=== PATIENT | male | born 1935 | race Caucasian/White ===

== ENCOUNTER 2016-10-31 14:09 | Inpatient (IN) | payer MEDICARE, BC, MEDICAID ==
--- NOTE | 2016-10-31 14:41 | EDM.PDOC ---
[id number] by Provider: 10/31/16 14:30 Source of Information: Reports: Patient, Family History Limitations: Reports: No limitations - History of Present Illness INITIAL COMMENTS - FREE TEXT/NARRATIVE: 80-year-old male with pulmonary fibrosis who was recently hospitalized for pneumonia and pleurisy has developed increased cough, shortness of breath and generalized malaise and weakness over the past several days. He's having difficulty talking in full sentences because of the dyspnea. He does not have a significantly increased respiratory rate nor does he have pain. He just feels awful. Onset: unknown/unsure (Several days) Location: Reports: abdomen Severity: moderate Associated Symptoms: Reports: nausea/vomiting, weakness. Denies: fever/chills, shortness of breath - Related Data Allergies Allergy/AdvReac Type Severity Reaction Status Date / Time morphine AdvReac Hallucinati Verified 08/15/16 09:41 ons Home Meds: Home Meds Aspirin [Adult Low Dose Aspirin EC] 1 tab PO DAILY 04/13/13 [History] Carvedilol [Coreg] 6.25 mg PO DAILY 04/13/13 [History] Losartan [Cozaar] 25 mg PO DAILY 04/13/13 [History] Multivit-Min/FA/Lycopene/Lut [Centrum Silver] 1 each PO DAILY 04/13/13 [History] Simvastatin [Zocor] 40 mg PO BEDTIME 04/13/13 [History] Pirfenidone [Esbriet] 2 tab PO TID 08/11/16 [History] Albuterol/Ipratropium [DuoNeb 3.0-0.5 MG/3 ML] 3 ml INH QID 09/08/16 [History] Carvedilol 12.5 mg PO BEDTIME 09/08/16 [History] Omeprazole Magnesium [Prilosec Otc] 1 tab PO DAILY 10/31/16 [History] Past Medical History HEENT History: Reports: Hard of hearing, Impaired vision Cardiovascular History: Reports: CAD, Heart Failure, High cholesterol, Hypertension, Pacemaker, SOB on exertion Respiratory History: Reports: COPD Other Respiratory History: influenza A Gastrointestinal History: Reports: GERD, GI bleed, Other (see below) Other Gastrointestinal History: diverticulitis, 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 Musculoskeletal History: Reports: Back pain, chronic, Osteoarthritis Hematologic History: Reports: Blood transfusion(s) Other Oncologic History: 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 - Infectious Disease History Infectious Disease History: Reports: Chicken pox, Influenza - Past Surgical History HEENT Surgical History: Reports: Adenoidectomy, Tonsillectomy Cardiovascular Surgical History: Reports: AICD, Coronary artery bypass, Pacer, Percutaneous transluminal angioplasty GI Surgical History: Reports: Appendectomy, Colon, Colonoscopy, EGD, Hernia repair/other Social & Family History - Family History Family Medical History: Noncontributory - Tobacco Use Smoking Status *Q: Never Smoker Years of Tobacco use: 30 Packs/Tins Daily: 1 Used Tobacco, but Quit: Yes Month Tobacco Last Used: 08/2010 Second Hand Smoke Exposure: No - Caffeine Use Caffeine Use: Reports: Coffee, Tea Other Caffeine Use: 1 cup a day - Alcohol Use Days Per Week of Alcohol Use: 1 Number of Drinks Per Day: 1 Total Drinks Per Week: 1 - Recreational Drug Use Recreational Drug Use: No - Living Situation & Occupation Living situation: Reports: Occupation: retired (Lives with , Sis in [place], [place]. has children and family in [place], his is a retired Charge Nurse at [employer], [place]) ED ROS GENERAL - Review of Systems Review Of Systems: See Below Constitutional: Reports: malaise, weakness. Denies: fever, chills HEENT: Reports: No symptoms Respiratory: Reports: Shortness of Breath, Cough Cardiovascular: Reports: Palpitations (According to his home health nurse his pulse was "irregular"). Denies: Chest pain GI/Abdominal: Denies: Abdominal pain, Constipation, Nausea, Vomiting : Reports: other Skin: Reports: pallor Neurological: Reports: Dizziness. Denies: Headache Psychiatric: Reports: No symptoms ED EXAM, GENERAL - Physical Exam Exam: See Below Exam Limited By: No limitations General Appearance: alert, no apparent distress (Patient looks uncomfortable with persistent nausea) Respiratory/Chest: no respiratory distress, rales, rhonchi (Diffuse rales and rhonchi heard bilaterally) Cardiovascular: regular rate, rhythm, extra beats GI/Abdominal: normal bowel sounds, soft, tender (Moderately tender to palpation across the upper abdomen) Extremities: No: pedal edema Neurological: alert, oriented Psychiatric: normal affect, normal mood Skin Exam: Warm, Dry Course - Vital Signs Last Recorded V/S: Last Vital Signs Temp 97.2 F 11/01/16 03:00 Pulse 89 11/01/16 03:00 Resp 17 11/01/16 03:00 BP 118/82 11/01/16 03:00 Pulse Ox 95 11/01/16 03:00 - Orders/Labs/Meds Orders: Active Orders 24 hr Category Date Time Status Chest 1V Frontal [CR] Stat Exams 10/31/16 14:52 Taken Medication Orders Acetaminophen (Tylenol) 650 mg PO Q4H PRN PRN Reason: Pain (Mild 1-3)/fever Albuterol/Ipratropium (Duoneb 3.0-0.5 Mg/3 Ml) 3 ml INH QIDRT [facility] Last Admin: 11/01/16 07:17 Dose: 3 ml Admin: 10/31/16 20:29 Dose: 3 ml Aspirin (Halfprin) 81 mg PO DAILY [facility] Carvedilol (Coreg) 12.5 mg PO BEDTIME [facility] Last Admin: 10/31/16 20:28 Dose: 12.5 mg Carvedilol (Coreg) 6.25 mg PO DAILY [facility] Docusate Sodium (Colace) 100 mg PO BID PRN PRN Reason: Constipation Enoxaparin Sodium (Lovenox) 40 mg SUBCUT DAILY [facility] Last Admin: 10/31/16 18:25 Dose: 40 mg Lactated Ringer's (Ringers, Lactated) 1,000 mls @ 125 mls/hr IV ASDIRECTED [facility] Last Admin: 11/01/16 03:09 Dose: 125 mls/hr Levofloxacin/Dextrose 250 mg/ (Premix) 50 mls @ 50 mls/hr IV Q24H [facility] Losartan Potassium (Cozaar) 25 mg PO DAILY [facility] Magnesium Hydroxide (Milk Of Magnesia) 30 ml PO Q12H PRN PRN Reason: Constipation Methylprednisolone Sodium Succinate (Solu-Medrol) 40 mg IVPUSH Q6H [facility] Last Admin: 11/01/16 05:23 Dose: 40 mg Admin: 11/01/16 00:27 Dose: 40 mg Admin: 10/31/16 18:25 Dose: 40 mg Non-Formulary Medication (Pirfenidone [Esbriet]) 2 tab PO TID [facility] Omeprazole (Omeprazole) 20 mg PO ACBREAKFAST [facility] Ondansetron HCl (Zofran) 4 mg IV Q4H PRN PRN Reason: Nausea/Vomiting Oxycodone HCl (Oxycodone) 5 mg PO Q4H PRN PRN Reason: Pain (moderate 4-6) Polyethylene Glycol (Miralax) 17 gm PO DAILY PRN PRN Reason: Constipation Simvastatin (Zocor) 40 mg PO BEDTIME [facility] Last Admin: 10/31/16 20:28 Dose: 40 mg Sodium Chloride (Saline Flush) 10 ml FLUSH ASDIRECTED PRN PRN Reason: Keep Vein Open Labs: Laboratory Tests 10/31/16 10/31/16 10/31/16 Range/Units 14:53 14:53 15:18 WBC 19.3 H (4.5-11.0) K/uL RBC 4.05 L (4.30-5.90) M/uL Hgb 12.0 (12.0-15.0) g/dL Hct 38.6 L (40.0-54.0) % MCV 95 (80-98) fL MCH 30 (27-31) pg MCHC 31 L (32-36) % Plt Count 434 H (150-400) K/uL Neut % (Auto) 83 H (36-66) % Lymph % (Auto) 10 L (24-44) % Grant % (Auto) 6 (2-6) % Eos % (Auto) 1 L (2-4) % Baso % (Auto) 0 (0-1) % Sodium 142 (140-148) mmol/L Potassium 3.9 (3.6-5.2) mmol/L Chloride 103 (100-108) mmol/L Carbon Dioxide 32 (21-32) mmol/L Anion Gap 7.5 (5.0-14.0) mmol/L BUN 17 (7-18) mg/dL Creatinine 1.1 (0.8-1.3) mg/dL Est Cr Clr Drug Dosing 45.59 mL/min Estimated GFR (MDRD) > 60 (>60) Glucose 164 H (74-106) mg/dL Calcium 9.1 (8.5-10.1) mg/dL Magnesium 1.8 (1.8-2.4) mg/dL Total Bilirubin 0.3 (0.2-1.0) mg/dL AST 18 (15-37) U/L ALT 18 (12-78) U/L Alkaline Phosphatase 113 (46-116) U/L Total Protein 8.5 H (6.4-8.2) g/dL Albumin 2.6 L (3.4-5.0) g/dL Globulin 5.9 H (2.3-3.5) g/dL Albumin/Globulin Ratio 0.4 L (1.2-2.2) Meds: Medications Generic Name Dose Route Start Last Admin Trade Name Freq PRN Reason Stop Dose Admin Acetaminophen 650 mg 10/31/16 17:53 Tylenol PO Q4H PRN Pain (Mild 1-3)/fever Albuterol/Ipratropium 3 ml 10/31/16 21:00 11/01/16 07:17 Duoneb 3.0-0.5 Mg/3 Ml INH 3 ml QIDRT [facility] Administration Aspirin 81 mg 11/01/16 09:00 Halfprin PO DAILY [facility] Carvedilol 12.5 mg 10/31/16 21:00 10/31/16 20:28 Coreg PO 12.5 mg BEDTIME [facility] Administration Carvedilol 6.25 mg 11/01/16 09:00 Coreg PO DAILY [facility] Docusate Sodium 100 mg 10/31/16 17:53 Colace PO BID PRN Constipation Enoxaparin Sodium 40 mg 10/31/16 17:53 10/31/16 18:25 Lovenox SUBCUT 40 mg DAILY [facility] Administration Lactated Ringer's 1,000 mls @ 125 mls/hr 10/31/16 17:53 11/01/16 03:09 Ringers, Lactated IV 125 mls/hr ASDIRECTED [facility] Administration Levofloxacin/Dextrose 250 mg/ 50 mls @ 50 mls/hr 11/01/16 18:00 Premix IV Q24H [facility] Losartan Potassium 25 mg 11/01/16 09:00 Cozaar PO DAILY [facility] Magnesium Hydroxide 30 ml 10/31/16 17:53 Milk Of Magnesia PO Q12H PRN Constipation Methylprednisolone Sodium Succinate 40 mg 10/31/16 18:00 11/01/16 05:23 Solu-Medrol IVPUSH 40 mg Q6H [facility] Administration Non-Formulary Medication 2 tab 10/31/16 21:00 Pirfenidone [Esbriet] PO TID [facility] Omeprazole 20 mg 11/01/16 07:30 Omeprazole PO ACBREAKFAST [facility] Ondansetron HCl 4 mg 10/31/16 17:53 Zofran IV Q4H PRN Nausea/Vomiting Oxycodone HCl 5 mg 10/31/16 17:53 Oxycodone PO Q4H PRN Pain (moderate 4-6) Polyethylene Glycol 17 gm 10/31/16 17:53 Miralax PO DAILY PRN Constipation Simvastatin 40 mg 10/31/16 21:00 10/31/16 20:28 Zocor PO 40 mg BEDTIME [facility] Administration Sodium Chloride 10 ml 10/31/16 17:53 Saline Flush FLUSH ASDIRECTED PRN Keep Vein Open Discontinued Medications Generic Name Dose Route Start Last Admin Trade Name Freq PRN Reason Stop Dose Admin Levofloxacin/Dextrose 500 mg/ 100 mls @ 100 mls/hr 10/31/16 18:00 10/31/16 18 :25 Premix IV 10/31/16 18:59 100 mls/hr ONETIME ONE Administration - Re-Assessments/Exams Free Text/Narrative Re-Assessment/Exam: 10/31/16 14:41 A 1 view chest x-ray was obtained that showed diffuse infiltrates. This however looks consistent with past x-rays. CBC CMP and magnesium were obtained. Also, was 19.3. Extended chemistry panel was relatively normal including magnesium, his glucose was mildly elevated. Dr. Vines of the hospitalist service will assess the patient to discuss possible admission and further treatment. Departure - Departure Time of Disposition: 17:30 Disposition: Admitted As Inpatient 65 Condition: fair Clinical Impression: Hypoxia, SOB (shortness of breath), Idiopathic pulmonary fibrosis - My Orders Last 24 Hours: My Active Orders 10/31/16 14:52 Chest 1V Frontal [CR] Stat - Assessment/Plan Last 24 Hours: My Active Orders 10/31/16 14:52 Chest 1V Frontal [CR] Stat
--- NOTE | 2016-10-31 17:46 | PCM.HP ---
H&P History of Present Illness - General Date of Service: 10/31/16 Admit Problem/Dx: Admission Diagnosis/Problem Admission Diagnosis/Problem Hypoxia Source of Information: Patient, Family, Old records, Provider, RN notes reviewed History Limitations: Reports: No limitations - History of Present Illness Initial Comments - Free Text/Narative: This patient is an 80-year-old gentleman with known severe pulmonary fibrosis and ongoing hypoxia requiring supplemental oxygen. He was hospitalized at this facility twice in August because of hypoxia and exacerbation of pulmonary fibrosis. Since his last discharge he's done well until the past 3-4 days when he's redeveloped cough and progressive increasing shortness of breath. Associated with this has been progressive weakness and decrease in appetite. He denies recent fevers chills or sweats and thus far cough has been productive only of white colored sputum. On evaluation in the emergency department today was noted to be hypoxic despite supplemental oxygen. Chest x-ray shows evidence of pulmonary fibrosis but no obvious new pulmonary infiltrates. White blood cell count is elevated, he is been afebrile while in the emergency department. - Related Data Allergies/Adverse Reactions: Allergies Allergy/AdvReac Type Severity Reaction Status Date / Time morphine AdvReac Hallucinati Verified 08/15/16 09:41 ons Home Medications: Home Meds Aspirin [Adult Low Dose Aspirin EC] 1 tab PO DAILY 04/13/13 [History] Carvedilol [Coreg] 6.25 mg PO DAILY 04/13/13 [History] Losartan [Cozaar] 25 mg PO DAILY 04/13/13 [History] Multivit-Min/FA/Lycopene/Lut [Centrum Silver] 1 each PO DAILY 04/13/13 [History] Simvastatin [Zocor] 40 mg PO BEDTIME 04/13/13 [History] Pirfenidone [Esbriet] 2 tab PO TID 08/11/16 [History] Albuterol/Ipratropium [DuoNeb 3.0-0.5 MG/3 ML] 3 ml INH QID 09/08/16 [History] Carvedilol 12.5 mg PO BEDTIME 09/08/16 [History] Omeprazole Magnesium [Prilosec Otc] 1 tab PO DAILY 10/31/16 [History] Past Medical History HEENT History: Reports: Hard of hearing, Impaired vision Cardiovascular History: Reports: CAD, Heart Failure, High cholesterol, Hypertension, Pacemaker, SOB on exertion Respiratory History: Reports: COPD Other Respiratory History: influenza A Gastrointestinal History: Reports: GERD, GI bleed, Other (see below) Other Gastrointestinal History: diverticulitis, 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 Musculoskeletal History: Reports: Back pain, chronic, Osteoarthritis Hematologic History: Reports: Blood transfusion(s) Other Oncologic History: 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 - Infectious Disease History Infectious Disease History: Reports: Chicken pox, Influenza - Past Surgical History HEENT Surgical History: Reports: Adenoidectomy, Tonsillectomy Cardiovascular Surgical History: Reports: AICD, Coronary artery bypass, Pacer, Percutaneous transluminal angioplasty GI Surgical History: Reports: Appendectomy, Colon, Colonoscopy, EGD, Hernia repair/other Social & Family History - Family History Family Medical History: Noncontributory - Tobacco Use Smoking Status *Q: Never Smoker Years of Tobacco use: 30 Packs/Tins Daily: 1 Used Tobacco, but Quit: Yes Month Tobacco Last Used: 08/2010 Second Hand Smoke Exposure: No - Caffeine Use Caffeine Use: Reports: Coffee, Tea Other Caffeine Use: 1 cup a day - Alcohol Use Days Per Week of Alcohol Use: 1 Number of Drinks Per Day: 1 Total Drinks Per Week: 1 - Recreational Drug Use Recreational Drug Use: No - Living Situation & Occupation Living situation: Reports: Occupation: retired (Lives with , Sis in [place], [place]. has children and family in [place], his is a retired Charge Nurse at [employer]) H&P Review of Systems - Review of Systems: Review Of Systems: See Below General: Reports: weakness, decreased appetite. Denies: fever, chills, diaphoresis HEENT: Reports: no symptoms Pulmonary: Reports: Shortness of Breath, Cough, Sputum. Denies: Wheezing, Pleuritic Chest Pain, Hemoptysis Cardiovascular: Reports: dyspnea on exertion. Denies: chest pain, palpitations , orthopnea, PND, edema, lightheadedness, syncope Gastrointestinal: Reports: No symptoms Genitourinary: Reports: no symptoms Musculoskeletal: Reports: no symptoms Skin: Reports: no symptoms Psychiatric: Reports: no symptoms Neurological: Reports: No Symptoms Hematologic/Lymphatic: Reports: no symptoms Immunologic: Reports: no symptoms Exam - Exam Exam: See Below - Vital Signs Vital Signs: Last Vital Signs Temp 98.9 F 10/31/16 15:13 Pulse 89 10/31/16 16:57 Resp 16 10/31/16 16:57 BP 123/81 10/31/16 16:57 Pulse Ox 91 L 10/31/16 16:57 Weight: 134 lb 14.766 oz - Exam Quality Assessment: supplemental oxygen, DVT prophylaxis General: alert, oriented, cooperative, mild distress HEENT: Conjunctiva clear, EOMI, Hearing intact, Mucosa moist & pink, Nares patent, Normal nasal septum, Posterior pharynx clear, Pupils equal, Pupils reactive Neck: supple, trachea midline, +2 carotid pulse wo bruit Lungs: Crackles. No: Normal respiratory effort, Rales, Rhonchi, Rub, Wheezing Cardiovascular: regular rate, regular rhythm, normal S1, normal S2, systolic murmur. No: irregular rhythm, bradycardia, tachycardia, diastolic murmur Abdomen: normal bowel sounds, soft Back Exam: normal inspection, full range of motion, NT Extremities: 3, normal inspection, 10 Skin: warm, dry, intact Neurological: cranial nerves intact, strength equal bilateral, normal speech, normal tone, sensation intact. No: focal deficit Neuro Extensive - Mental Status: alert, oriented x3, normal mood/affect, normal cognition, memory intact - Patient Data Result Diagrams: 10/31/16 14:53 10/31/16 14:53 *Q Meaningful Use (ADM) - VTE *Q VTE Criteria *Q: - VTE Risk Assess *Q Each Risk Factor Represents 1 Point: Abnormal Pulmonary Function (COPD) Total Score 1 Point Risk Factors: 1 Each Risk Factor Represents 2 Points: None Total Score 2 Point Risk Factors: 0 Each Risk Factor Represents 3 Points: Age 75 Years or Greater Total Score 3 Point Risk Factors: 3 Each Risk Factor Represents 5 Points: None Total Score 5 Point Risk Factors: 0 Venous Thromboembolism Risk Factor Score *Q: 4 - Stroke *Q Stroke Criteria *Q: - AMI *Q AMI Criteria *Q: Problem List Initiated/Reviewed/Updated: Yes Orders Last 24hrs: Active Orders 24 hr Category Date Time Status Resuscitation Status Routine Resus Stat 10/31/16 17:06 Ordered Assessment/Plan Comment:: ASSESSMENT AND PLAN PULMONARY FIBROSIS EXACERBATION SECONDARY TO BRONCHITIS-at baseline requires use of continuous oxygen. He has experienced increased shortness of breath, cough, decreased appetite, and progressive weakness over the past few days. White count is elevated, chest x-ray shows no new infiltrates, but it is difficult to exclude pneumonia because of his significant fibrosis. -IV fluids for hydration -Nebulizer therapy with albuterol and duo nebs -Solu-Medrol 40 mg IV every 6 hours -Levofloxacin 500 mg IV every 24 hours ACUTE ON CHRONIC HYPOXIC RESPIRATORY FAILURE-secondary to his long-standing pulmonary fibrosis and acute infection. -Management as above -Supplemental oxygen as needed to maintain oxygen saturation greater than 90%. MAINTENANCE ISSUES -DVT prophylaxis; Lovenox 40 mg subcutaneous daily -GI prophylaxis; not indicated -Fine catheter; not indicated -Nutrition; regular diet -Nicotine dependence; not required CODE STATUS-DNR/DNI ADMISSION STATUS-patient will be admitted to inpatient status, expect at least a 2 night hospital stay for evaluation and management of problems as outlined above. At the time of this admission I do not reasonably expected evaluation and management of this problem will require more than a 96 hour hospital stay. DISPOSITION-anticipate discharge to home after the hospital stay. PRIMARY CARE PROVIDER-Dr. Mattson
[2016-10-31] MEDS ORDERED: Docusate Sodium 100 MG Cap PO PRN (17:53)
[2016-10-31] MEDS ORDERED: Polyethylene Glycol 3350 Powder 17 GM Packet PO PRN (17:53)
[2016-10-31] MEDS ORDERED: Acetaminophen 325 MG Tab PO PRN (17:53)
[2016-10-31] MEDS ORDERED: oxyCODONE 5 MG Tab PO PRN (17:53)
[2016-10-31] MEDS ORDERED: Magnesium Hydroxide 400 MG/5 ML Susp 30 ML Cup PO PRN (17:53)
[2016-10-31] MEDS ORDERED: Ondansetron 4 MG/2 ML SDV IV PRN (17:53)
[2016-10-31] MEDS ORDERED: Sodium Chloride 0.9% 10 ML Syringe FLUSH PRN (17:53)
[2016-10-31] MEDS ORDERED: Levofloxacin/Dextrose 5%-Water 500 MG in Premix Bag 1 BAG IV ONE (18:00)
[2016-10-31] MEDS: Enoxaparin 40 MG/0.4 ML Syringe SUBCUT SCH (18:25)
[2016-10-31] MEDS: methylPREDNISolone Sodium Succinate 40 MG/1 ML SDV IVPUSH SCH (18:25)
[2016-10-31] MEDS: Simvastatin 20 MG Tab PO SCH (20:28)
[2016-10-31] MEDS: Carvedilol 6.25 MG Tab PO SCH (20:28)
[2016-10-31] MEDS: Albuterol/Ipratropium 3.0-0.5 MG/3 ML Neb Soln INH SCH (20:29)
[2016-11-01] MEDS: methylPREDNISolone Sodium Succinate 40 MG/1 ML SDV IVPUSH SCH ×4 (00:27→22:22)
[2016-11-01] MEDS: Lactated Ringers 1,000 ML IV SCH ×2 (03:09→11:27)
[2016-11-01] MEDS: Albuterol/Ipratropium 3.0-0.5 MG/3 ML Neb Soln INH SCH ×4 (07:17→20:26)
[2016-11-01] MEDS ORDERED: Omeprazole 20 MG Cap.CR PO SCH (07:30)
[2016-11-01] MEDS: Aspirin 81 MG Tab.EC PO SCH (08:44)
[2016-11-01] MEDS: Losartan 50 MG Tab PO SCH (08:45)
[2016-11-01] MEDS: Enoxaparin 40 MG/0.4 ML Syringe SUBCUT SCH (08:46)
[2016-11-01] MEDS: Carvedilol 6.25 MG Tab PO SCH ×2 (08:46→20:16)
--- NOTE | 2016-11-01 13:35 | PCM.PN ---
- General Info Date of Service: 11/01/16 - Review of Systems General: Reports: Weakness. Denies: Fever, Chills Pulmonary: Reports: shortness of breath, cough. Denies: pleuritic chest pain, sputum, hemoptysis, wheezing Cardiovascular: Reports: Dyspnea on Exertion. Denies: Chest Pain, Palpitations , Orthopnea, PND, Edema, Lightheadedness Gastrointestinal: Reports: No symptoms Systems Review Comment:: This patient has felt improved from admission with less shortness of breath and cough. Vital signs have been stable and he has remained afebrile. - Patient Data Vitals - most recent: Last Vital Signs Temp 97.5 F 11/01/16 11:23 Pulse 82 11/01/16 11:23 Resp 16 11/01/16 11:23 BP 130/81 11/01/16 11:23 Pulse Ox 99 11/01/16 11:23 Weight - most recent: 134 lb 14.766 oz I&O - last 24 hours: Intake & Output 10/31/16 11/01/16 11/01/16 22:59 06:59 14:59 Intake Total 100 1286 120 Output Total 200 550 Balance 100 1086 -430 Lab Results last 24 hrs: Laboratory Results - last 24 hr 11/01/16 11/01/16 Range/Units 05:11 05:11 WBC 12.7 H (4.5-11.0) K/uL RBC 3.60 L (4.30-5.90) M/uL Hgb 10.5 L (12.0-15.0) g/dL Hct 34.1 L (40.0-54.0) % MCV 95 (80-98) fL MCH 29 (27-31) pg MCHC 31 L (32-36) % Plt Count 400 (150-400) K/uL Neut % (Auto) 89 H (36-66) % Lymph % (Auto) 11 L (24-44) % Brule % (Auto) 1 L (2-6) % Eos % (Auto) 0 L (2-4) % Baso % (Auto) 0 (0-1) % Sodium 141 (140-148) mmol/L Potassium 4.2 (3.6-5.2) mmol/L Chloride 104 (100-108) mmol/L Carbon Dioxide 30 (21-32) mmol/L Anion Gap 7.3 (5.0-14.0) mmol/L BUN 15 (7-18) mg/dL Creatinine 0.9 (0.8-1.3) mg/dL Est Cr Clr Drug Dosing 55.72 mL/min Estimated GFR (MDRD) > 60 (>60) Glucose 141 H (74-106) mg/dL Calcium 8.1 L (8.5-10.1) mg/dL Magnesium 1.8 (1.8-2.4) mg/dL Med Orders - Current: Current Medications Acetaminophen (Tylenol) 650 mg PO Q4H PRN PRN Reason: Pain (Mild 1-3)/fever Albuterol/Ipratropium (Duoneb 3.0-0.5 Mg/3 Ml) 3 ml INH QIDRT [facility] Last Admin: 11/01/16 10:38 Dose: 3 ml Aspirin (Halfprin) 81 mg PO DAILY [facility] Last Admin: 11/01/16 08:44 Dose: 81 mg Carvedilol (Coreg) 12.5 mg PO BEDTIME [facility] Last Admin: 10/31/16 20:28 Dose: 12.5 mg Carvedilol (Coreg) 6.25 mg PO DAILY [facility] Last Admin: 11/01/16 08:46 Dose: 6.25 mg Docusate Sodium (Colace) 100 mg PO BID PRN PRN Reason: Constipation Enoxaparin Sodium (Lovenox) 40 mg SUBCUT DAILY [facility] Last Admin: 11/01/16 08:46 Dose: 40 mg Levofloxacin/Dextrose 250 mg/ (Premix) 50 mls @ 50 mls/hr IV Q24H [facility] Losartan Potassium (Cozaar) 25 mg PO DAILY [facility] Last Admin: 11/01/16 08:45 Dose: 25 mg Magnesium Hydroxide (Milk Of Magnesia) 30 ml PO Q12H PRN PRN Reason: Constipation Non-Formulary Medication (Pirfenidone [Esbriet]) 2 tab PO TID [facility] Omeprazole (Omeprazole) 20 mg PO ACBREAKFAST [facility] Last Admin: 11/01/16 08:46 Dose: 20 mg Ondansetron HCl (Zofran) 4 mg IV Q4H PRN PRN Reason: Nausea/Vomiting Oxycodone HCl (Oxycodone) 5 mg PO Q4H PRN PRN Reason: Pain (moderate 4-6) Polyethylene Glycol (Miralax) 17 gm PO DAILY PRN PRN Reason: Constipation Simvastatin (Zocor) 40 mg PO BEDTIME [facility] Last Admin: 10/31/16 20:28 Dose: 40 mg Sodium Chloride (Saline Flush) 10 ml FLUSH ASDIRECTED PRN PRN Reason: Keep Vein Open Discontinued Medications Lactated Ringer's (Ringers, Lactated) 1,000 mls @ 125 mls/hr IV ASDIRECTED [facility] Last Admin: 11/01/16 11:27 Dose: 125 mls/hr Levofloxacin/Dextrose 500 mg/ (Premix) 100 mls @ 100 mls/hr IV ONETIME ONE Stop: 10/31/16 18:59 Last Admin: 10/31/16 18:25 Dose: 100 mls/hr Methylprednisolone Sodium Succinate (Solu-Medrol) 40 mg IVPUSH Q6H [facility] Last Admin: 11/01/16 12:35 Dose: 40 mg - Exam Quality Assessment: supplemental oxygen, DVT prophylaxis General: alert, oriented, cooperative, mild distress Lungs: Normal respiratory effort, Crackles. No: Rales, Rhonchi, Rub, Stridor, Wheezing Cardiovascular: Regular Rate, Regular Rhythm, No Murmurs Abdomen: bowel sounds present, soft, no tenderness, no distension Extremities: no edema Skin: warm, dry, intact - Problem List Review Problem List Initiated/Reviewed/Updated: Yes - My Orders Last 24 Hours: My Active Orders 10/31/16 17:06 Resuscitation Status Routine 10/31/16 17:53 Patient Status [ADT] Routine Intake and Output [RC] QSHIFT Notify Provider Vital Signs [RC] ASDIRECTED Oxygen Therapy [RC] PRN Peripheral IV Care [RC] Q12H Up With Assistance [RC] ASDIRECTED VTE/DVT Education [RC] Per Unit Routine Vital Signs [RC] Q4H Acetaminophen [Tylenol] 650 mg PO Q4H PRN Docusate Sodium [Colace] 100 mg PO BID PRN Enoxaparin [Lovenox] 40 mg SUBCUT DAILY Magnesium Hydroxide [Milk of Magnesia] 30 ml PO Q12H PRN Ondansetron [Zofran] 4 mg IV Q4H PRN Polyethylene Glycol 3350 [MiraLAX] 17 gm PO DAILY PRN Sodium Chloride 0.9% [Saline Flush] 10 ml FLUSH ASDIRECTED PRN oxyCODONE 5 mg PO Q4H PRN Peripheral IV Insertion Adult [OM.PC] Routine 10/31/16 18:00 methylPREDNISolone Sod Succ [Solu-MEDROL] 40 mg IVPUSH Q6H 10/31/16 Dinner Regular Diet [DIET] 11/01/16 13:32 Convert IV to Saline Lock [OM.PC] Routine 11/01/16 13:45 methylPREDNISolone Sod Succ [Solu-MEDROL] 40 mg IVPUSH Q12H 11/01/16 18:00 Levofloxacin/Dextrose 5%-Water [Levaquin in D5W 250 MG/50 ML] 250 mg Premix Bag 1 bag IV Q24H - Plan Plan:: ASSESSMENT AND PLAN PULMONARY FIBROSIS EXACERBATION SECONDARY TO BRONCHITIS-at baseline requires use of continuous oxygen. Symptoms have improved modestly since admission -Saline lock IV -Nebulizer therapy with albuterol and duo nebs -Solu-Medrol 40 mg IV every 12 hours -Levofloxacin 500 mg IV every 24 hours ACUTE ON CHRONIC HYPOXIC RESPIRATORY FAILURE-secondary to his long-standing pulmonary fibrosis and acute infection. -Management as above -Supplemental oxygen as needed to maintain oxygen saturation greater than 90%. MAINTENANCE ISSUES -DVT prophylaxis; Lovenox 40 mg subcutaneous daily -GI prophylaxis; not indicated -Fine catheter; not indicated -Nutrition; regular diet -Nicotine dependence; not required CODE STATUS-DNR/DNI ADMISSION STATUS-patient will be admitted to inpatient status, expect at least a 2 night hospital stay for evaluation and management of problems as outlined above. At the time of this admission I do not reasonably expected evaluation and management of this problem will require more than a 96 hour hospital stay. DISPOSITION-anticipate discharge to home after the hospital stay. PRIMARY CARE PROVIDER-Dr. Mattson
[2016-11-01] MEDS: PIRFENIDONE PO SCH ×4 (17:42→22:22)
[2016-11-01] MEDS ORDERED: Levofloxacin/Dextrose 5%-Water 250 MG in Premix Bag 1 BAG IV SCH (18:00)
[2016-11-01] MEDS: Simvastatin 20 MG Tab PO SCH (20:17)
[2016-11-02] MEDS: Albuterol/Ipratropium 3.0-0.5 MG/3 ML Neb Soln INH SCH ×2 (07:28→10:36)
[2016-11-02] MEDS ORDERED: Pantoprazole 20 MG Tab, Delayed Release PO SCH (07:30)
[2016-11-02] MEDS: Carvedilol 6.25 MG Tab PO SCH (08:06)
[2016-11-02] MEDS: Losartan 50 MG Tab PO SCH (08:06)
[2016-11-02] MEDS: Enoxaparin 40 MG/0.4 ML Syringe SUBCUT SCH (08:07)
[2016-11-02] MEDS: Aspirin 81 MG Tab.EC PO SCH (08:07)
[2016-11-02] MEDS: PIRFENIDONE PO SCH (08:08)
[2016-11-02 11:04] VITALS: BP 135/80
[2016-11-02] MEDS: methylPREDNISolone Sodium Succinate 40 MG/1 ML SDV IVPUSH SCH (11:18)
--- NOTE | 2016-11-02 12:26 | PCM.DCSUM1 ---
Discharge Summary - Hospital Course Brief History: Mr. Torres is an 80-year-old gentleman who presented to the emergency department with increasing hypoxia secondary to bronchitis and exacerbation of pulmonary fibrosis. - Discharge Data Discharge Date: 11/02/16 Discharge Disposition: Home, [facility] 06 Condition: Fair - Discharge Diagnosis/Problem(s) (1) Constipation SNOMED Code(s): 70959161 ICD Code: K59.00 - CONSTIPATION, UNSPECIFIED Status: Acute Current Visit : Yes (2) Bronchitis SNOMED Code(s): 45730616 ICD Code: J40 - BRONCHITIS, NOT SPECIFIED ACUTE OR CHRONIC Status: Acute Current Visit: Yes (3) Hypoxia SNOMED Code(s): 777832037, 991857970 ICD Code: R09.02 - HYPOXEMIA Status: Acute Priority: High Current Visit : Yes (4) Idiopathic pulmonary fibrosis Status: Chronic Current Visit: Yes - Patient Summary/Data Hospital Course: Mr. Torres is an 80-year-old gentleman with a known history of severe oxygen- dependent pulmonary fibrosis. Over a period of 2 days prior to admission he developed increased shortness of breath and cough. On evaluation in the emergency department his white blood cell count was normal and there were no obvious new infiltrates noted on chest x-ray. Was felt that he was likely experiencing an episode of bronchitis compromising his pulmonary fibrosis and causing increase in hypoxia. He was started on IV antibiotic therapy with levofloxacin, given nebulizer therapy, and IV Solu-Medrol. He also had some recent difficulty with constipation and during his hospital stay did have a large bowel movement which also significantly helped his breathing. He was requalified or home oxygen prior to discharge, on the day of discharge was documented to have an oxygen saturation of 82% on room air while at rest. He will be discharged home on an additional three-day course of prednisone as well as an additional 7 days of antibiotic therapy with levofloxacin. Activity will be as tolerated and he will resume his usual diet. Followup appointment will be scheduled with Dr. Mattson within one week. - Patient Instructions Diet: Usual Diet as Tolerated Activity: As Tolerated Other/Special Instructions: Please schedule followup appointment with Dr. Mattson within one week. - Discharge Plan Prescriptions/Med Rec: Levofloxacin [Levaquin] 250 mg PO Q24H #7 tablet Polyethylene Glycol 3350 [Miralax] 17 gm PO BID PRN #30 powd.pack PRN Reason: Constipation Prednisone [IJD: predniSONE] 40 mg PO WITHBREAKFAST #6 tab Home Medications: Home Meds Aspirin [Adult Low Dose Aspirin EC] 1 tab PO DAILY 04/13/13 [History] Carvedilol [Coreg] 6.25 mg PO DAILY 04/13/13 [History] Losartan [Cozaar] 25 mg PO DAILY 04/13/13 [History] Multivit-Min/FA/Lycopene/Lut [Centrum Silver] 1 each PO DAILY 04/13/13 [History] Simvastatin [Zocor] 40 mg PO BEDTIME 04/13/13 [History] Pirfenidone [Esbriet] 2 tab PO TID 08/11/16 [History] Albuterol/Ipratropium [DuoNeb 3.0-0.5 MG/3 ML] 3 ml INH QID 09/08/16 [History] Carvedilol 12.5 mg PO BEDTIME 09/08/16 [History] Omeprazole Magnesium [Prilosec Otc] 1 tab PO DAILY 10/31/16 [History] Levofloxacin [Levaquin] 250 mg PO Q24H #7 tablet 11/02/16 [Rx] Polyethylene Glycol 3350 [Miralax] 17 gm PO BID PRN #30 powd.pack 11/02/16 [Rx] Prednisone [IJD: predniSONE] 40 mg PO WITHBREAKFAST #6 tab 11/02/16 [Rx] Referrals: Jackson Mattson MD [Primary Care Provider] - - Patient Data Vitals - Most Recent: Last Vital Signs Temp 97.5 F 11/02/16 11:02 Pulse 71 11/02/16 11:02 Resp 16 11/02/16 11:02 BP 135/80 11/02/16 11:02 Pulse Ox 97 11/02/16 11:02 Weight - Most Recent: 134 lb 14.766 oz I&O - Last 24 hours: Intake & Output 11/01/16 11/02/16 11/02/16 22:59 06:59 14:59 Intake Total 650 240 240 Balance 650 240 240 Med Orders - Current: Current Medications Acetaminophen (Tylenol) 650 mg PO Q4H PRN PRN Reason: Pain (Mild 1-3)/fever Albuterol/Ipratropium (Duoneb 3.0-0.5 Mg/3 Ml) 3 ml INH QIDRT [facility] Last Admin: 11/02/16 10:36 Dose: 3 ml Aspirin (Halfprin) 81 mg PO DAILY [facility] Last Admin: 11/02/16 08:07 Dose: 81 mg Carvedilol (Coreg) 12.5 mg PO BEDTIME [facility] Last Admin: 11/01/16 20:16 Dose: 12.5 mg Carvedilol (Coreg) 6.25 mg PO DAILY [facility] Last Admin: 11/02/16 08:06 Dose: 6.25 mg Docusate Sodium (Colace) 100 mg PO BID PRN PRN Reason: Constipation Last Admin: 11/01/16 20:22 Dose: 100 mg Enoxaparin Sodium (Lovenox) 40 mg SUBCUT DAILY [facility] Last Admin: 11/02/16 08:07 Dose: 40 mg Levofloxacin/Dextrose 250 mg/ (Premix) 50 mls @ 50 mls/hr IV Q24H [facility] Last Admin: 11/01/16 17:43 Dose: 50 mls/hr Losartan Potassium (Cozaar) 25 mg PO DAILY [facility] Last Admin: 11/02/16 08:06 Dose: 25 mg Magnesium Hydroxide (Milk Of Magnesia) 30 ml PO Q12H PRN PRN Reason: Constipation Methylprednisolone Sodium Succinate (Solu-Medrol) 40 mg IVPUSH Q12H [facility] Last Admin: 11/02/16 11:18 Dose: 40 mg Pirfenidone [Esbriet (] 2 CapsPom) 0 tab PO TID [facility] Last Admin: 11/02/16 08:08 Dose: 2 tab Ondansetron HCl (Zofran) 4 mg IV Q4H PRN PRN Reason: Nausea/Vomiting Oxycodone HCl (Oxycodone) 5 mg PO Q4H PRN PRN Reason: Pain (moderate 4-6) Pantoprazole Sodium (Pantoprazole) 20 mg PO ACBREAKFAST [facility] Last Admin: 11/02/16 08:05 Dose: 20 mg Polyethylene Glycol (Miralax) 17 gm PO DAILY PRN PRN Reason: Constipation Simvastatin (Zocor) 40 mg PO BEDTIME [facility] Last Admin: 11/01/16 20:17 Dose: 40 mg Sodium Chloride (Saline Flush) 10 ml FLUSH ASDIRECTED PRN PRN Reason: Keep Vein Open Discontinued Medications Lactated Ringer's (Ringers, Lactated) 1,000 mls @ 125 mls/hr IV ASDIRECTED [facility] Last Admin: 11/01/16 11:27 Dose: 125 mls/hr Levofloxacin/Dextrose 500 mg/ (Premix) 100 mls @ 100 mls/hr IV ONETIME ONE Stop: 10/31/16 18:59 Last Admin: 10/31/16 18:25 Dose: 100 mls/hr Methylprednisolone Sodium Succinate (Solu-Medrol) 40 mg IVPUSH Q6H [facility] Last Admin: 11/01/16 12:35 Dose: 40 mg Omeprazole (Omeprazole) 20 mg PO ACBREAKFAST [facility] Last Admin: 11/01/16 08:46 Dose: 20 mg *Q Meaningful Use (DIS) - VTE *Q VTE Criteria *Q: - Stroke *Q Stroke Criteria *Q: - AMI *Q AMI Criteria *Q:
--- NOTE | 2016-11-03 09:23 | CR ---
Chest 1V Frontal HISTORY: Dyspnea. Comparison: 09/11/2016 FINDINGS: Prior median sternotomy. Stable mild cardiomegaly. Left-sided pacemaker. No acute congesti ve change. Extensive fibrotic change present on multiple prior films. I do not see evidence for supe rimposed acute infiltrate or effusion.
== END 2016-11-02 13:30 | disposition home health service (06) | DRG 196 ==
LOC: JP.ED 14:09 → JP.MS 17:03
PROVIDERS: ADMIT Hospitalist; ATTEND Hospitalist
DX: J84.112 Idiopathic pulmonary fibrosis (principal); J96.21 Acute and chronic respiratory failure with hypoxia; I50.9 Heart failure, unspecified; Z87.891 Personal history of nicotine dependence; Z66 Do not resuscitate; Z99.81 Dependence on supplemental oxygen; J20.9 Acute bronchitis, unspecified; J44.9 Chronic obstructive pulmonary disease, unspecified; I11.0 Hypertensive heart disease with heart failure; K59.00 Constipation, unspecified; M19.90 Unspecified osteoarthritis, unspecified site; M54.9 Dorsalgia, unspecified; G89.29 Other chronic pain; K21.9 Gastro-esophageal reflux disease without esophagitis; E78.00 Pure hypercholesterolemia, unspecified; H91.90 Unspecified hearing loss, unspecified ear; H54.7 Unspecified visual loss; Z95.0 Presence of cardiac pacemaker; Z95.1 Presence of aortocoronary bypass graft; Z85.820 Personal history of malignant melanoma of skin; Z88.5 Allergy status to narcotic agent; Z79.82 Long term (current) use of aspirin; Z79.52 Long term (current) use of systemic steroids
CPT/HCPCS: 36415; 71010; 71010-26; 80048; 80053; 83735; 85025; 94640-76; 99285; A9270-GY; J1650; J1956; J2920; J7120; J7620

== ENCOUNTER 2016-11-20 16:22 | Emergency (ER) | payer MEDICARE, BC, MEDICAID ==
[2016-11-20] MEDS ORDERED: Sodium Chloride 0.9% 10 ML Syringe FLUSH PRN (17:05)
[2016-11-20] MEDS ORDERED: Ondansetron 4 MG/2 ML SDV IVPUSH ONE (17:05)
[2016-11-20] MEDS ORDERED: Sodium Chloride 0.9% 1,000 ML IV SCH (17:15)
--- NOTE | 2016-11-20 17:21 | EDM.PDOC ---
ED HPI GI/ABDOMINAL - General Chief Complaint: Gastrointestinal Problem Stated Complaint: VOMITING,DIARRHEA Time Seen by Provider: 11/20/16 16:58 Source: Reports: Patient, Family History Limitations: Reports: No limitations - History of Present Illness INITIAL COMMENTS - FREE TEXT/NARRATIVE: this gentleman comes in because of vomiting and diarrhea. It started at 6 AM today. He's had 5 bouts of watery diarrhea and 5 bouts of vomiting. The last vomiting was on the way to the hospital. He and his went out to eat last night and they had the same thing. His had cramps during the night. Patient's symptoms didn't start until 6 AM. He denies any fever no body aches. He did have a brief episode of dizziness when he was up walking across the street. His says that until just recently he was having trouble eating anything and that was going on for the last couple of months but that's gotten better. He's been treated for a number of things lately such as bronchitis and pneumonia cardiac arrhythmia and so forth he's not having any chest pain or palpitations cough or shortness of breath. - Related Data Allergies/ADRs: Allergies Allergy/AdvReac Type Severity Reaction Status Date / Time morphine AdvReac Hallucinati Verified 08/15/16 09:41 ons Home Meds: Home Meds Aspirin [Adult Low Dose Aspirin EC] 1 tab PO DAILY 04/13/13 [History] Carvedilol [Coreg] 6.25 mg PO DAILY 04/13/13 [History] Losartan [Cozaar] 25 mg PO DAILY 04/13/13 [History] Multivit-Min/FA/Lycopene/Lut [Centrum Silver] 1 each PO DAILY 04/13/13 [History] Simvastatin [Zocor] 40 mg PO BEDTIME 04/13/13 [History] Pirfenidone [Esbriet] 2 tab PO TID 08/11/16 [History] Albuterol/Ipratropium [DuoNeb 3.0-0.5 MG/3 ML] 3 ml INH QID 09/08/16 [History] Carvedilol 12.5 mg PO BEDTIME 09/08/16 [History] Omeprazole Magnesium [Prilosec Otc] 1 tab PO DAILY 10/31/16 [History] Prednisone [IJD: predniSONE] 40 mg PO WITHBREAKFAST #6 tab 03/26/17 [Rx] Past Medical History HEENT History: Reports: Hard of hearing, Impaired vision Cardiovascular History: Reports: CAD, Heart Failure, High cholesterol, Hypertension, Pacemaker, SOB on exertion Other Cardiovascular History: defibrillator Respiratory History: Reports: COPD Other Respiratory History: influenza A Gastrointestinal History: Reports: GERD, GI bleed, Other (see below) Other Gastrointestinal History: diverticulitis, 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 Musculoskeletal History: Reports: Back pain, chronic, Osteoarthritis Hematologic History: Reports: Blood transfusion(s) Other Oncologic History: 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 Dermatologic History: Reports: Other (see below) Other Dermatologic History: skin cancer - Infectious Disease History Infectious Disease History: Reports: Chicken pox, Influenza - Past Surgical History HEENT Surgical History: Reports: Adenoidectomy, Tonsillectomy Cardiovascular Surgical History: Reports: AICD, Coronary artery bypass, Pacer, Percutaneous transluminal angioplasty GI Surgical History: Reports: Appendectomy, Colon, Colonoscopy, EGD, Hernia repair/other Male Surgical History: Reports: Other (see below) Other Male Surgeries/Procedures: bladder repair Social & Family History - Family History Family Medical History: Noncontributory - Tobacco Use Smoking Status *Q: Never Smoker Years of Tobacco use: 30 Packs/Tins Daily: 1 Used Tobacco, but Quit: Yes Month Tobacco Last Used: 08/2010 Second Hand Smoke Exposure: No - Caffeine Use Caffeine Use: Reports: Coffee, Tea Other Caffeine Use: 1 cup a day - Alcohol Use Days Per Week of Alcohol Use: 1 Number of Drinks Per Day: 1 Total Drinks Per Week: 1 - Recreational Drug Use Recreational Drug Use: No - Living Situation & Occupation Living situation: Reports: Occupation: retired (Lives with , Sis in [place], [place]. 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[employer]) ED ROS GENERAL - Review of Systems Review Of Systems: See Below Constitutional: Reports: weakness HEENT: Reports: No symptoms Respiratory: Reports: No Symptoms Cardiovascular: Reports: No symptoms Endocrine: Reports: no symptoms GI/Abdominal: Reports: Abdominal pain (just some very mild cramping), Diarrhea, Nausea, Vomiting : Reports: no symptoms Musculoskeletal: Reports: no symptoms Skin: Reports: no symptoms Neurological: Reports: No Symptoms, Dizziness (see HPI) Psychiatric: Reports: No symptoms Hematologic/Lymphatic: Reports: no symptoms Immunologic: Reports: no symptoms ED EXAM, GI/ABD - Physical Exam Exam: See Below Exam Limited By: No limitations General Appearance: alert, no apparent distress, thin Eyes: bilateral: normal appearance Ears: normal external exam Nose: normal inspection Throat/Mouth: Normal inspection, Normal oropharynx Head: atraumatic Neck: normal inspection, supple Respiratory/Chest: lungs clear Cardiovascular: normal peripheral pulses, regular rate, rhythm GI/Abdominal: normal bowel sounds, soft, non tender Extremities: normal inspection Neurological: alert, oriented, CN II-XII intact, normal cognition, no motor/ sensory deficits Psychiatric: normal affect Skin Exam: Warm, Dry Course - Vital Signs Last Recorded V/S: Last Vital Signs Temp 37.1 C 11/20/16 16:47 Pulse 107 H 11/20/16 16:47 Resp 23 H 11/20/16 16:47 BP 122/72 11/20/16 16:47 Pulse Ox 93 L 11/20/16 16:47 - Orders/Labs/Meds Orders: Active Orders 24 hr Category Date Time Status EKG Documentation Completion [RC] ASDIRECTED Care 11/20/16 17:05 Active UA W/MICROSCOPIC [URIN] Urgent Lab 11/20/16 17:04 Uncollected Sodium Chloride 0.9% [Normal Saline] 1,000 ml Med 11/20/16 17:15 Active IV ASDIRECTED Sodium Chloride 0.9% [Saline Flush] Med 11/20/16 17:05 Active 10 ml FLUSH ASDIRECTED PRN Saline Lock Insert [OM.PC] Urgent Oth 11/20/16 17:04 Ordered EKG 12 Lead [EK] Urgent Ther 11/20/16 17:04 Ordered Medication Orders Sodium Chloride (Normal Saline) 1,000 mls @ 999 mls/hr IV ASDIRECTED [facility] Last Admin: 11/20/16 17:40 Dose: 999 mls/hr Sodium Chloride (Saline Flush) 10 ml FLUSH ASDIRECTED PRN PRN Reason: Keep Vein Open Last Admin: 11/20/16 17:39 Dose: 10 ml Labs: Laboratory Tests 11/20/16 11/20/16 11/20/16 Range/Units 17:05 17:05 17:05 WBC 15.1 H (4.5-11.0) K/uL RBC 4.67 (4.30-5.90) M/uL Hgb 13.7 D (12.0-15.0) g/dL Hct 44.8 (40.0-54.0) % MCV 96 (80-98) fL MCH 29 (27-31) pg MCHC 31 L (32-36) % Plt Count 352 (150-400) K/uL Neut % (Auto) 89 H (36-66) % Lymph % (Auto) 6 L (24-44) % Ceiba % (Auto) 5 (2-6) % Eos % (Auto) 1 L (2-4) % Baso % (Auto) 0 (0-1) % Sodium 146 (140-148) mmol/L Potassium 4.6 (3.6-5.2) mmol/L Chloride 107 (100-108) mmol/L Carbon Dioxide 31 (21-32) mmol/L Anion Gap 7.8 (5.0-14.0) mmol/L BUN 21 H (7-18) mg/dL Creatinine 0.9 (0.8-1.3) mg/dL Est Cr Clr Drug Dosing 54.81 mL/min Estimated GFR (MDRD) > 60 (>60) Glucose 114 H (74-106) mg/dL Lactic Acid 1.2 (0.4-2.0) mmol/L Calcium 9.1 (8.5-10.1) mg/dL Total Bilirubin 0.5 D (0.2-1.0) mg/dL AST 27 (15-37) U/L ALT 25 (12-78) U/L Alkaline Phosphatase 124 H (46-116) U/L Troponin I < 0.017 (0.000-0.056) ng/mL Total Protein 8.8 H (6.4-8.2) g/dL Albumin 3.2 L (3.4-5.0) g/dL Globulin 5.6 H (2.3-3.5) g/dL Albumin/Globulin Ratio 0.6 L (1.2-2.2) Meds: Medications Generic Name Dose Route Start Last Admin Trade Name Freq PRN Reason Stop Dose Admin Sodium Chloride 1,000 mls @ 999 mls/hr 11/20/16 17:15 11/20/16 17:40 Normal Saline IV 999 mls/hr ASDIRECTED [facility] Administration Sodium Chloride 10 ml 11/20/16 17:05 11/20/16 17:39 Saline Flush FLUSH 10 ml ASDIRECTED PRN Administration Keep Vein Open Discontinued Medications Generic Name Dose Route Start Last Admin Trade Name Susana PRN Reason Stop Dose Admin Ondansetron HCl 4 mg 11/20/16 17:05 11/20/16 17:40 Zofran IVPUSH 11/20/16 17:06 4 mg ONETIME ONE Administration - Re-Assessments/Exams Free Text/Narrative Re-Assessment/Exam: 11/20/16 18:37 EKG shows a S.Benny at 97 beats per minute there is one set of PVCs bigeminy borderline R wave progression and borderline T abnormalities. This patient received 1 L of IV normal saline and 4 mg of Zofran IV. He felt much better afterwards and feels ready to go home. His nausea is gone and he is eating some Jell-O now. Departure - Departure Time of Disposition: 18:38 Disposition: Home, Self-Care 01 Condition: fair Clinical Impression: Acute gastroenteritis Forms: ED Department Discharge Additional Instructions: clear sweet liquids or a bland diet for the next 24 hours. Be sure you're taking in at least a little bit of sugar. A lot of people drink something like Gatorade. Jell-O bananas rice and so forth are okay. If needed use the Zofran (ondansetron) 4 mg one or 2 sublingual every 6-8 hours as needed for nausea. You can probably go back to a regular diet in 24 hours. if you wish you may try a dose of Imodium AD for the diarrhea - My Orders Last 24 Hours: My Active Orders 11/20/16 17:04 UA W/MICROSCOPIC [URIN] Urgent Saline Lock Insert [OM.PC] Urgent EKG 12 Lead [EK] Urgent 11/20/16 17:05 EKG Documentation Completion [RC] ASDIRECTED Sodium Chloride 0.9% [Saline Flush] 10 ml FLUSH ASDIRECTED PRN 11/20/16 17:15 Sodium Chloride 0.9% [Normal Saline] 1,000 ml IV ASDIRECTED - Assessment/Plan Last 24 Hours: My Active Orders 11/20/16 17:04 UA W/MICROSCOPIC [URIN] Urgent Saline Lock Insert [OM.PC] Urgent EKG 12 Lead [EK] Urgent 11/20/16 17:05 EKG Documentation Completion [RC] ASDIRECTED Sodium Chloride 0.9% [Saline Flush] 10 ml FLUSH ASDIRECTED PRN 11/20/16 17:15 Sodium Chloride 0.9% [Normal Saline] 1,000 ml IV ASDIRECTED
[2016-11-20 18:45] VITALS: BP 139/87
== END 2016-11-20 19:08 | disposition home or self-care (01) ==
LOC: JP.ED 16:22
DX: K52.9 Noninfective gastroenteritis and colitis, unspecified (principal); I25.10 Atherosclerotic heart disease of native coronary artery without angina pectoris; I50.9 Heart failure, unspecified; I10 Essential (primary) hypertension; E78.00 Pure hypercholesterolemia, unspecified; J44.9 Chronic obstructive pulmonary disease, unspecified; K21.9 Gastro-esophageal reflux disease without esophagitis; Z85.828 Personal history of other malignant neoplasm of skin; Z79.82 Long term (current) use of aspirin; Z79.899 Other long term (current) drug therapy; Z88.5 Allergy status to narcotic agent; Z95.0 Presence of cardiac pacemaker; Z95.810 Presence of automatic (implantable) cardiac defibrillator; Z90.49 Acquired absence of other specified parts of digestive tract; Z95.5 Presence of coronary angioplasty implant and graft; Z98.890 Other specified postprocedural states
CPT/HCPCS: 36415; 80053; 83605; 84484; 85025; 93005; 96361; 96374; 99284; J2405; J7040; J7050; 93010